=== PATIENT | male | born 1935 | race Caucasian/White ===

== ENCOUNTER 2020-10-27 11:30 | Outpatient (CLI) | payer MEDICARE, SELFPAY ==
--- NOTE | 2020-10-27 11:32 | ECG_ITS ---
Measurements Intervals [place] Rate: 52 P: 4 DE: 190 QRS: -51 QRSD: 105 T: -30 QT: 432 QTc: 405 Interpretive Statements SINUS BRADYCARDIA LEFT BUNDLE BRANCH BLOCK VOLTAGE CRITERIA FOR LVH BASELINE ARTIFACT- I, II, III, AVR, AVL, AVF, V1-V4 ABNORMAL ECG Electronically Signed On 10-27-2020 12:17:38 SEASONAL RECRUITER by Marcellus Zamora D.O.
[2020-10-27 12:22] LABS: INR 1.1; Prothrombin Time 14.4 Seconds (11.1-14.7)
[2020-10-27 12:23] LABS: Partial Thromboplastin Time 31.9 SECONDS (22.3-36.8)
== END 2020-10-27 11:31 | disposition home or self-care (01) ==
PROVIDERS: Visit Provider Urology
DX: Z01.812 Encounter for preprocedural laboratory examination (principal); I10 Essential (primary) hypertension; N20.0 Calculus of kidney; I44.7 Left bundle-branch block, unspecified; R94.31 Abnormal electrocardiogram [ECG] [EKG]
CPT/HCPCS: 36415; 85610; 85730; 93005

== ENCOUNTER → 2020-11-01 01:34 | Outpatient (CLI) | payer MEDICARE, SELFPAY ==
[2020-11-01 22:34] LABS: SARS-CoV-2 RNA PCR Negative
== END ==
PROVIDERS: Visit Provider Urology
DX: Z01.812 Encounter for preprocedural laboratory examination (principal); Z20.822 Contact with and (suspected) exposure to COVID-19
CPT/HCPCS: C9803; U0003; U0005

== ENCOUNTER 2020-11-03 01:03 | Day surgery (SDC) | payer MEDICARE, SELFPAY ==
[2020-10-24 13:05] VITALS: BMI 27.1
--- NOTE | 2020-10-31 08:34 | PM.HPGS ---
History of Present Illness History of Present Illness Consent: Risks, benefits, and alternatives have been discussed and questions answered. Patient agrees to proceed with procedure. Chief complaint: left renal stone, bladder stone Narrative: Bry Lee is a 84 year old male Who has been a patient in our practice for many years. 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 He also has some component BPH. He was recently in the emergency room at [facility] with gross hematuria. CT scan of the abdomen and pelvis with without contrast showed several nonobstructing bilateral renal calculi, up to 8 mm in the left kidney and 3 mm in the right kidney. Additionally has a 2-3 mm bladder stone. After discussion of options he has elected for simultaneous left ESWL and laser lithotripsy with extraction bladder stone. Review of Systems Cardiovascular: Cardiovascular: Denies chest pain, Denies lightheadedness, Denies palpitations and Denies dyspnea Respiratory: Respiratory: Denies dyspnea Gastrointestinal: Gastrointestinal: Denies diarrhea, Denies nausea and Denies vomiting Genitourinary: Genitourinary: Denies hematuria and Denies dysuria Endocrine: Endocrine: Denies palpitations [facility] Social History Social History Smoking status: Never smoker Second hand tobacco smoke exposure: No Alcohol intake: never Substance use: never Substance use type: does not use Spiritual care concerns: No Meds Home Medications and Allergies Home Medications Medication Instructions Recorded Confirmed Type allopurinol 300 mg DAILY 10/24/20 10/24/20 History atenolol 25 mg BID 10/24/20 10/24/20 History calcium carbonate-vitamin D2 1 tablet PO DAILY 10/24/20 10/24/20 History [Calcium + Vitamin D] chlordiazepoxide-clidinium 1 cap PO BID 10/24/20 10/24/20 History clopidogrel 75 mg DAILY 10/24/20 10/24/20 History diphenhydramine HCl [Benadryl] 25 mg PO BID PRN 10/24/20 10/24/20 History finasteride 5 mg HS 10/24/20 10/24/20 History ipratropium-albuterol 3 ml INHALATION QAM 10/24/20 10/24/20 History irbesartan 75 mg PO DAILY 10/24/20 10/24/20 History mirabegron [Myrbetriq] 50 mg PO DAILY 10/24/20 10/24/20 History wwcjpmvk-ckm-WX-lycopen-lutein 1 tablet PO DAILY 10/24/20 10/24/20 History [Centrum Silver Men] omega-3 fatty acids [Fish Oil] 2,000 mg PO BID 10/24/20 10/24/20 History primidone 100 mg BID 10/24/20 10/24/20 History tamsulosin 0.4 mg PO HS 10/24/20 10/24/20 History Allergies Allergy/AdvReac Type Severity Reaction Status Date / Time iodine Allergy Unknown PROLONGED Verified 10/24/20 12:54 SNEEZING celecoxib [From Celebrex] AdvReac Rash Verified 10/24/20 12:54 Myuzdvs-Aiy-Uiz Reductase AdvReac Rash Verified 10/24/20 12:54 Inhibitor Contrast Media Allergy Unknown PROLONGES Uncoded 10/24/20 12:54 SNEEZING Assessment and Plan Assessment and plan (1) Bilateral renal stones: Code(s): N20.0 - Calculus of kidney Status: Acute (2) BPH loc w urin obs/LUTS: Code(s): N40.1 - Benign prostatic hyperplasia with lower urinary tract symptoms Status: Acute (3) Bladder stones: Code(s): N21.0 - Calculus in bladder Status: Acute Assessment and Plan: Cystoscopy with laser lithotripsy and extraction of bladder stone Left ESWL
--- NOTE | 2020-11-02 15:49 | WPDANESEPPF ---
Anes - Initial Pre Proc Eval Procedure: Operation Date: 11/03/20 09:30 Proposed Procedures p Left Renal Extracorporeal Shock Wave Lithotripsy, Possible Left Stent Placement, - Noel Lopez MD s Cystoscopy with Laser Lithotripsy of Bladder Stone - Noel Lopez MD Date/Time: 11/02/20 15:49 Surgeon: Noel Lopez MD Pre Op Diagnosis: left renal stone, bladder stone Patient Data Age: 84 Gender: M Height: 1.75 m Weight: 83.18 kg Allergies Allergy/AdvReac Type Severity Reaction Status Date / Time celecoxib [From Celebrex] AdvReac Mild Rash Verified 11/03/20 08:17 iodine AdvReac Mild PROLONGED Verified 11/03/20 08:17 SNEEZING Fidyban-Aiv-Iuh Reductase AdvReac Mild Rash Verified 11/03/20 08:17 Inhibitor Contrast Media AdvReac Mild PROLONGES Uncoded 11/03/20 08:17 SNEEZING Home Medications Medication Instructions Recorded Confirmed Type allopurinol 300 mg DAILY 10/24/20 11/03/20 History atenolol 25 mg BID 10/24/20 11/03/20 History calcium carbonate-vitamin D2 1 tablet PO DAILY 10/24/20 11/03/20 History [Calcium + Vitamin D] chlordiazepoxide-clidinium 1 cap PO BID 10/24/20 11/03/20 History clopidogrel 75 mg DAILY 10/24/20 11/03/20 History diphenhydramine HCl [Benadryl] 25 mg PO BID PRN 10/24/20 11/03/20 History finasteride 5 mg HS 10/24/20 11/03/20 History ipratropium-albuterol 3 ml INHALATION QAM 10/24/20 11/03/20 History irbesartan 75 mg PO DAILY 10/24/20 11/03/20 History mirabegron [Myrbetriq] 50 mg PO DAILY 10/24/20 11/03/20 History neuoxcgp-urn-PM-lycopen-lutein 1 tablet PO DAILY 10/24/20 11/03/20 History [Centrum Silver Men] omega-3 fatty acids [Fish Oil] 2,000 mg PO BID 10/24/20 11/03/20 History primidone 100 mg BID 10/24/20 11/03/20 History tamsulosin 0.4 mg PO HS 10/24/20 11/03/20 History Patient hx anesthesia problems: none Family hx anesthesia problems: none PMFSH Past Medical History Medical History (Updated 11/02/20 @ 15:50 by Rickie Joaquin MD) Bladder stones BPH loc w urin obs/LUTS CVA (cerebral vascular accident) 2018, l side weakness HTN (hypertension) Social History Social History Smoking status: Never smoker Second hand tobacco smoke exposure: No Alcohol intake: never Substance use: never Substance use type: does not use Living arrangements: with family Spiritual care concerns: No Anes - Eval Final PreProcedure Day of Procedure 11/02/20 15:49 Patient weight: overweight Heart: regular rate and rhythm Lungs: clear to auscultation and normal air movement Airway: Mallampati scale class II Neurological: alert and oriented Last oral intake: >/= 8 hours ASA classification: III Emergent: no Anesthetic plan: proceed Anesthesia type and monitoring: general LMA Informed Consent: The patient's anesthetic plan and its attendant risks and benefits were discussed with the patient/family/POA. Questions were solicited and answers provided to the satisfaction of the patient/family/POA.
[2020-11-03] VITALS (8 sets, daily range): BP systolic 113–160; BP diastolic 56–85; PULSE 65–74; RESP 11–20; TEMP 36.7–36.9; O2SAT 98–100
--- NOTE | ~2020-11-03 | XR_ITS ---
EXAMINATION: XR abdomen/kub 1V DATE: 11/03/2020 07:56 INDICATION: Renal stone. TECHNIQUE: A supine view of the abdomen on 2 radiographs was obtained. COMPARISON: Abdomen radiographs 11/21/2010 FINDINGS: There are dilated loops of small bowel. The colon is decompressed. There are phleboliths in the pelvis. There is a 2.9 cm stone in the bladder. There is a 7 mm stone in left kidney lower pole. There is a 2 mm calcification in left pelvis. IMPRESSION: 1. Stones in the bladder in left kidney. 2. 2 mm calcification in left pelvis, which may be a phlebolith or distal ureteral stone. 3. Dilated small bowel, consistent with adynamic ileus versus small bowel obstruction. Reviewed, dictated and finalized at location A. ING MACHINE TENDER IMPRESSION: 1. Stones in the bladder in left kidney. 2. 2 mm calcification in left pelvis, which may be a phlebolith or distal urete ral stone. 3. Dilated small bowel, consistent with adynamic ileus versus small bowel obstr uction.
[2020-11-03] MEDS: LACTATED RINGERS 1,000 ML 30 ML IV CONT (08:35)
--- NOTE | 2020-11-03 09:07 | WPDHPUPDATE1 ---
History and Physical Update Update Date/Time: 11/03/20 09:07 History and Physical has been reviewed, including an updated exam of the patient. There are NO changes in the patient's condition. Risks, benefits, and alternatives have been discussed and questions answered. Patient agrees to proceed with procedure.
[2020-11-03] MEDS: ceFAZolin 2 GM/D5W 50 ML 2 GM/50 ML BAG IVPB (09:30)
--- NOTE | 2020-11-03 10:36 | P.OP_ITS ---
Procedure Note - Detailed Date of procedure: 11/03/20 Pre-op diagnosis: left renal stone, bladder stone Post-op diagnosis: same Procedure performed: 1. Laser lithotripsy with bladder stone extraction (large, 2.9 cm) 2. ESWL left renal stone Description of procedure: Patient is brought to the operative suite res 1st prepped draped in routine sterile fashion while in a dorsal lithotomy position. This done after the uneventful induction of a general LMA anesthetic. A 21 F rigid cystoscope was placed in his bladder. He has moderate lateral lobe hyperplasia with a small median lobe. He has a 2.9 cm bladder calculus. Using a 1000 micron holmium laser fiber we fractured into multiple small fragments which were extracted will with ease using a CoreDial evacuator. Simultaneously, focal point of the [place]ier Lithotripter was placed and a 5 mm left renal calculus. Total of 2500 shocks were delivered at a power setting of 4. There appeared to be good fragmentation of that stone. Anesthesia: GLMA Surgeon: Noel Lopez MD Estimated blood loss (mL): 15 Drains: Yes (16F Mat[place]) Packing: No Pathology: yes (Bladder stone) Complications: No immediate complications Condition: stable Disposition: PACU
--- NOTE | 2020-11-03 12:41 | SUR.PHASEII ---
I TOOK MULLIGAN OUT AT [address] MYERS INSTRUCTIONS. PT TOLERATED WELL.
== END 2020-11-03 12:40 | disposition home or self-care (01) ==
PROVIDERS: Visit Provider Urology
PROC: (CPT 50590; principal; 2020-11-03 09:30)
PROC: (CPT 52318; 2020-11-03 09:30)
DX: N21.0 Calculus in bladder (principal); N20.0 Calculus of kidney; I10 Essential (primary) hypertension; N40.1 Benign prostatic hyperplasia with lower urinary tract symptoms; N13.8 Other obstructive and reflux uropathy; I69.354 Hemiplegia and hemiparesis following cerebral infarction affecting left non-dominant side; Z79.02 Long term (current) use of antithrombotics/antiplatelets
CPT/HCPCS: 52318; 50590; 74018; 82365; 88300; A9270; C1769; C9803; J0690; J1100; J2405; J2704; J3010; J7120; Q9966; U0003; U0005